=== PATIENT | male | born 2005 | race Asian ===

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

== ENCOUNTER 2023-10-27 06:48 | Inpatient (IN) | payer OTHER ==
[~2023-10-27] VITALS: Ht 172.7 cm; Wt 68.2 kg
[~2023-10-27 06:48] MED LIST changes: +BENZ2TAB71 PO; -BENZ2TAB76 PO; -DIVA-80 PO; +DIVA500T53 PO
[2023-10-27 07:28] LABS: BASOPHILS % (AUTO) 0.4 % (0.0-2.0); EOSINOPHILS % (AUTO) 1.8 % (1.0-6.0); LYMPHOCYTES # (AUTO) 2.7 K/uL (1.0-4.8); LYMPHOCYTES % (AUTO) 33.4 % (22.0-44.0); MEAN CORPUSCULAR HEMOGLOBIN 31.2 pg (26.0-34.0); MEAN CORPUSCULAR HGB CONC 34.8 G/dL (31.0-37.0); MEAN CORPUSCULAR VOLUME 90 fL (80-100); MONOCYTES # (AUTO) 0.6 K/uL (0.1-1.0); MONOCYTES % (AUTO) 7.5 % (2.0-9.0); NEUTROPHILS # (AUTO) 4.7 K/uL (1.8-7.7); NEUTROPHILS % (AUTO) 56.9 % (40.0-70.0); PLATELET COUNT (AUTO) 274 K/uL (150-450); RED BLOOD CELL COUNT(AUTO) 4.81 MIL/uL (4.50-5.90); RED CELL DISTRIBUTION WIDTH 12.2 % (11.5-14.5); WHITE BLOOD COUNT (AUTO) 8.2 K/uL (4.5-11.0)
[2023-10-27 07:30] LABS: COVID AG,FIA SOURCE NASAL SWAB
[2023-10-27 07:40] LABS: ANION GAP 8 mmol/L (8-16); CALCIUM, TOTAL 9.4 mg/dL (8.8-10.5); CARBON DIOXIDE 29 mmol/L (22-29); CHLORIDE 100 mmol/L (98-107); CREATININE 1.15 mg/dL (0.60-1.30); GLOMERULAR FILTR. RATE CALC > 60 mL/min (>60); GLUCOSE,RANDOM 108 mg/dL (70-110); POTASSIUM 3.8 mmol/L (3.5-5.1); SODIUM SERUM 137 mmol/L (136-145); UREA NITROGEN, BLOOD 14 mg/dL (7-18)
[2023-10-27 07:41] LABS: ALCOHOL, BLOOD (SERUM) < 3 mg/dL (0-10)
[2023-10-27] MEDS ORDERED: DiphenhydrAMINE HCL 50 MG/ML VIAL IM ONE (07:45)
[2023-10-27] MEDS ORDERED: HALOPERIDOL LACTATE 5 MG/ML VIAL IM ONE (07:45)
[2023-10-27 07:46] LABS: ALANINE AMINOTRANSFERASE 25 U/L (12-78); ALBUMIN 4.3 g/dL (3.4-5.0); ALKALINE PHOSPHATASE 86 U/L (46-116); ASPARTATE AMINOTRANSFERASE 31 U/L (15-37); BILIRUBIN,TOTAL 0.3 mg/dL (0.1-1.0); TOTAL PROTEIN, SERUM 8.6 g/dL (6.4-8.2); VALPROIC ACID 56 mcg/mL (50-100)
[2023-10-27 07:51] LABS: SARS-COV2 (COVID) ANTIGEN,FIA Negative (Negative)
[2023-10-27 07:51] LABS: PH,URINE DRUG SCREEN 6.5 (5.0-8.0)
[2023-10-27 07:59] LABS: ALCOHOL, URINE DRUG SCREEN NEGATIVE (NEGATIVE); AMPHET/METH SCREEN,URINE NEGATIVE (NEGATIVE); BARBITURATE SCREEN, URINE NEGATIVE (NEGATIVE); BENZODIAZEPINES SCREEN,URINE NEGATIVE (NEGATIVE); CANNABINOID SCREEN,URINE NEGATIVE (NEGATIVE); COCAINE SCREEN,URINE NEGATIVE (NEGATIVE); METHADONE SCREEN, URINE NEGATIVE (NEGATIVE); OPIATE SCREEN,URINE NEGATIVE (NEGATIVE); PHENCYCLIDINE SCREEN,URINE NEGATIVE (NEGATIVE)
[2023-10-27] MEDS ORDERED: HALOPERIDOL 5 MG TABLET PO PRN (11:00)
[2023-10-27] MEDS ORDERED: ZOLPIDEM TARTRATE 10 MG TABLET PO PRN (11:00)
[2023-10-27] MEDS ORDERED: LURA40TA4 PO (13:23)
[2023-10-27] MEDS ORDERED: LURA40TA2 PO (13:23)
[2023-10-27 16:12] VITALS: BP 132/92; PULSE 71; RESP 18; TEMP 97.7; O2SAT 100
[2023-10-27] MEDS ORDERED: INFLUENZA VIRUS VACCINE QVS 2023-24 (6MO+)/PF 60 MCG/0.5 ML SYRINGE IM. ONE (16:45)
[2023-10-27 20:33] VITALS: BP 103/62; PULSE 60; RESP 18; TEMP 97.7
[2023-10-28] MEDS ORDERED: OLANZapine 5 MG TABLET PO ONE (10:15)
[2023-10-28] MEDS ORDERED: HydrOXYzine HCL 50 MG TABLET PO PRN (13:00)
[2023-10-28 14:11] VITALS: BP 153/63; PULSE 70; RESP 18; TEMP 97.7; O2SAT 99
[2023-10-28 18:39] VITALS: BP 134/74; PULSE 75; RESP 18; TEMP 98.6; O2SAT 98
[2023-10-28] MEDS ORDERED: DIVALPROEX SODIUM 500 MG DR TABLET PO SCH (21:00)
[2023-10-28] MEDS ORDERED: OLANZapine 7.5 MG TABLET PO SCH (21:00)
[2023-10-28 23:12] VITALS: BP 113/66; PULSE 70; RESP 20; TEMP 98.6; O2SAT 97
[2023-10-29 10:49] VITALS: BP 116/70; PULSE 75; RESP 16; TEMP 97.9; O2SAT 99
[2023-10-29] MEDS ORDERED: LURA40TA2 PO ×2 (14:19→14:57)
[2023-10-29] MEDS ORDERED: OLAN15TA21 PO ×2 (14:21→14:57)
[2023-10-29] MEDS ORDERED: DIVA-112 PO ×2 (14:23→14:57)
[2023-10-29] MEDS ORDERED: LURASIDONE HCL 40 MG TABLET PO SCH (17:00)
== END 2023-10-29 16:54 | disposition home or self-care (01) | DRG 885 ==
LOC: EMS 06:49 → B3A 12:39 → B2X 10-28 18:34
PROVIDERS: ADMIT Psychiatry & Neurology Psychiatry; ATTEND Psychiatry & Neurology Psychiatry
DX: F31.9 Bipolar disorder, unspecified (principal); R45.851 Suicidal ideations; F41.9 Anxiety disorder, unspecified; G47.00 Insomnia, unspecified; F20.9 Schizophrenia, unspecified; F17.210 Nicotine dependence, cigarettes, uncomplicated; Z20.822 Contact with and (suspected) exposure to COVID-19; R03.0 Elevated blood-pressure reading, without diagnosis of hypertension; Z88.8 Allergy status to other drugs, medicaments and biological substances
CPT/HCPCS: 80053; 80164; 80307; 85025; G0480; J1200; J1630